=== PATIENT | female | born 2000 | race Caucasian/White ===

== ENCOUNTER 2018-06-10 17:18 | Emergency (ER) | payer OTHER ==
--- NOTE | 2018-06-10 17:44 | ER Document Report ---
ED Psych Disorder / Suicide - General Stated Complaint: PSYCH EVAL Time Seen by Provider: 06/10/18 17:22 Notes: 17-year-old female patient emergency department for evaluation of suicidal ideation and overdose. Patient reportedly took a bottle of NyQuil which had 295 mg of Benadryl and then also took 4200 mg of ibuprofen. Patient states that she is sad because she is not going to be home for [place] and this is the first time she has been away from home. Was recently . Is active duty [employer]. Denies any other ingestion at this time. - HPI Patient complains to provider of: Suicidal ideation, Suicidal plan, Suicidal attempt Onset: This afternoon Onset was: Sudden Severity: Moderate Pain Level: Denies Suicide Risk Factors: Depressed Suicide Attempt Method: Overdose Overdose of: Anticholinergic Past Medical History - General Information source: Patient - Social History Smoking Status: Current Every Day Smoker Frequency of alcohol use: None Drug Abuse: None Lives with: Spouse/Significant other Family History: Reviewed & Not Pertinent Review of Systems - Review of Systems Notes: Constitutional: denies: Chills, Diaphoresis, Fever, Malaise, Weakness EENT: denies: Eye discharge, Blurred vision, Tearing, Double vision, Nose congestion, Nose discharge, Throat swelling, Mouth pain Cardiovascular: denies: Palpitations, Heart racing, Orthopnea, Dyspnea, Chest pain Respiratory: denies: Cough, Hurts to breathe, Wheezing, Shortness of breath Gastrointestinal: denies: Abdominal pain, Diarrhea, Nausea, Vomiting, Black stools, bright red blood in stool Genitourinary: denies: Burning, Dysuria, Discharge, Frequency, Flank pain, Hematuria Musculoskeletal: denies: Joint pain, Joint swelling, Muscle pain, Muscle stiffness, back pain Hematologic/Lymphatic: denies: Anemia, Easy bleeding, Easy bruising, Blood clots Neurological/Psychological: denies: Confusion, Dementia, and complaining of depression and suicidal ideation with suicide attempt. Skin: No lesions, no masses, no skin breakdown, no abscesses Physical Exam - Vital signs Vitals: Resp BP 16 126/79 H 06/10/18 17:37 06/10/18 17:37 Interpretation: Normal - General General appearance: Appears well, Alert - HEENT Head: Normocephalic, Atraumatic Eyes: Normal Pupils: PERRL - Respiratory Respiratory status: No respiratory distress Chest status: Nontender Breath sounds: Normal Chest palpation: Normal - Cardiovascular Rhythm: Regular Heart sounds: Normal auscultation Murmur: No - Abdominal Inspection: Normal Distension: No distension Bowel sounds: Normal Tenderness: Nontender Organomegaly: No organomegaly - Back Back: Normal, Nontender - Extremities General upper extremity: Normal inspection, Nontender, Normal color, Normal ROM, Normal temperature General lower extremity: Normal inspection, Nontender, Normal color, Normal ROM, Normal temperature, Normal weight bearing. No: Nette's sign - Neurological Neuro grossly intact: Yes Cognition: Normal Orientation: AAOx4 Antlers Coma Scale Eye Opening: Spontaneous Nisha Coma Scale Verbal: Oriented Antlers Coma Scale Motor: Obeys Commands Nisha Coma Scale Total: 15 Speech: Normal Motor strength normal: LUE, RUE, LLE, RLE Sensory: Normal - Psychological Associated symptoms: Normal affect, Depressed - Skin Skin Temperature: Warm Skin Moisture: Dry Skin Color: Normal Course - Re-evaluation Re-evalutation: 06/10/18 20:24 Laboratory 06/10/18 06/10/18 06/10/18 17:40 17:40 17:40 WBC 6.4 RBC 5.20 Hgb 15.4 Hct 44.1 MCV 85 MCH 29.5 MCHC 34.9 RDW 12.8 Plt Count 255 Seg Neutrophils % 55.9 Lymphocytes % 31.1 Monocytes % 8.4 Eosinophils % 3.6 Basophils % 1.0 Absolute Neutrophils 3.6 Absolute Lymphocytes 2.0 Absolute Monocytes 0.5 Absolute Eosinophils 0.2 Absolute Basophils 0.1 PT 12.7 INR 0.91 Sodium 142.1 Potassium 3.7 Chloride 109 H Carbon Dioxide 25 Anion Gap 8 BUN 15 Creatinine 0.87 Est GFR ( Amer) > 60 Est GFR (Non-Af Amer) > 60 Glucose 82 Calcium 9.5 Total Bilirubin 0.7 Direct Bilirubin 0.2 Neonat Total Bilirubin Not Reportable Neonat Direct Bilirubin Not Reportable Neonat Indirect Bili Not Reportable AST 33 H ALT 26 Alkaline Phosphatase 72 Total Protein 6.8 Albumin 4.1 Urine Color Urine Appearance Urine pH Ur Specific [place] Urine Protein Urine Glucose (UA) Urine Ketones Urine Blood Urine Nitrite Urine Bilirubin Urine Urobilinogen Ur Leukocyte Esterase Urine WBC (Auto) Urine Bacteria (Auto) Squamous Epi Cells Auto Urine Mucus (Auto) Urine Ascorbic Acid Urine HCG, Qual Salicylates Acetaminophen Serum Alcohol 06/10/18 06/10/18 06/10/18 17:40 17:40 17:40 WBC RBC Hgb Hct MCV MCH MCHC RDW Plt Count Seg Neutrophils % Lymphocytes % Monocytes % Eosinophils % Basophils % Absolute Neutrophils Absolute Lymphocytes Absolute Monocytes Absolute Eosinophils Absolute Basophils PT INR Sodium Potassium Chloride Carbon Dioxide Anion Gap BUN Creatinine Est GFR ( Amer) Est GFR (Non-Af Amer) Glucose Calcium Total Bilirubin Direct Bilirubin Neonat Total Bilirubin Neonat Direct Bilirubin Neonat Indirect Bili AST ALT Alkaline Phosphatase Total Protein Albumin Urine Color YELLOW Urine Appearance CLEAR Urine pH 6.0 Ur Specific [place] 1.020 Urine Protein NEGATIVE Urine Glucose (UA) NEGATIVE Urine Ketones NEGATIVE Urine Blood NEGATIVE Urine Nitrite NEGATIVE Urine Bilirubin NEGATIVE Urine Urobilinogen NEGATIVE Ur Leukocyte Esterase NEGATIVE Urine WBC (Auto) 0 Urine Bacteria (Auto) TRACE Squamous Epi Cells Auto 1 Urine Mucus (Auto) RARE Urine Ascorbic Acid NEGATIVE Urine HCG, Qual POSITIVE H Salicylates < 1.0 L Acetaminophen < 10 L Serum Alcohol < 10 She has a positive test. Initial labs negative. Consulted with psychiatry at [facility] Lucas Narvaez who would like to have patient admitted to the medical service due to her new diagnosis of and overdose and then they will see her as an inpatient. Will attempt to transfer/consult with medicine Dr. Lucas Narvaez shortly. 06/10/18 20:[address] Duenas with internal medicine at [facility]. He has accepted the patient. We will transfer her shortly. 06/10/18 22:02 Did speak with patient's commanding officer, Lieutenant Colonel Miller. He would like to be contacted if there are any concerns. His cell phone number is [phone]. Patient did give me permission to speak with her chain of command . 06/10/18 22:21 Repeat Tylenol performed and there is no elevation at 4-hour gracie. Patient remained stable for transport at this time. Patient was reevaluated shortly prior to transfer and remained stable. Transport crew is here at this time for transfer. - Vital Signs Vital signs: Temp Pulse Resp BP Pulse Ox 98 F 16 107/53 L 98 06/10/18 18:48 06/10/18 22:10 06/10/18 22:00 06/10/18 22:10 - Laboratory Result Diagrams: 06/10/18 17:40 12/21/18 17:40 Laboratory results interpreted by me: 06/10/18 06/10/18 06/10/18 17:40 17:40 17:40 Chloride 109 H AST 33 H Beta HCG, Quant Urine HCG, Qual POSITIVE H Salicylates < 1.0 L Acetaminophen < 10 L 06/10/18 06/10/18 06/10/18 17:40 17:40 21:45 Chloride AST Beta HCG, Quant 709.29 H Urine HCG, Qual Salicylates Acetaminophen < 10 L < 10 L - EKG Interpretation by Me EKG shows normal: Sinus rhythm, Sprak[place], Intervals, QRS Complexes, ST-T Waves Discharge - Discharge Clinical Impression: Suicidal ideation Overdose Qualifiers: Encounter type: initial encounter Injury intent: intentional self-harm Qualified Code(s): T50.902A - Poisoning by unspecified drugs, medicaments and b iological substances, intentional self-harm, initial encounter Ibuprofen overdose Qualifiers: Encounter type: initial encounter Injury intent: intentional self-harm Qualified Code(s): T39.312A - Poisoning by propionic acid derivatives, intentional self-harm, initial encounter Qualifiers: Weeks of gestation: less than 8 weeks Qualified Code(s): Z3A.01 - Less than 8 weeks gestation of Condition: Good Disposition: [facility]
[2018-06-10 17:56] LABS: ABSOLUTE BASOPHILS # (AUTO) 0.1 10^3/uL (0.0-0.2); ABSOLUTE EOSINOPHILS # (AUTO) 0.2 10^3/uL (0.0-0.6); ABSOLUTE MONOCYTES (AUTO) 0.5 10^3/uL (0.1-1.4); ABSOLUTE NEUT (AUTO) 3.6 10^3/uL (1.7-8.2); EOSINOPHILS % (AUTO) 3.6 % (0-6); HEMATOCRIT 44.1 % (36.0-47.0); HEMOGLOBIN 15.4 g/dL (12.0-15.5); LYMPHOCYTES % (AUTO) 31.1 % (13-45); MEAN CORPUSCULAR HEMOGLOBIN 29.5 pg (27.0-33.4); MEAN CORPUSCULAR HGB CONC 34.9 g/dL (32.0-36.0); MEAN CORPUSCULAR VOLUME 85 fl (80-97); MONOCYTES % (AUTO) 8.4 % (3-13); PLATELET COUNT 255 10^3/uL (150-450); RED CELL DISTRIBUTION WIDTH 12.8 % (11.5-14.0); SEGMENTED NEUTROPHILS % (AUTO) 55.9 % (42-78); TOTAL CELLS COUNTED % (AUTO) 100 %; WHITE BLOOD COUNT 6.4 10^3/uL (4.0-10.5)
[2018-06-10 17:59] LABS: APPEARANCE,URINE CLEAR; BILIRUBIN,URINE NEGATIVE (NEGATIVE); COLOR,URINE YELLOW; GLUCOSE, URINE NEGATIVE (NEGATIVE); KETONES,URINE NEGATIVE (NEGATIVE); LEUKOCYTE ESTERASE,URINE NEGATIVE (NEGATIVE); NITRITE,URINE NEGATIVE (NEGATIVE); PROTEIN,URINE NEGATIVE (NEGATIVE); UROBILINOGEN,URINE NEGATIVE mg/dL (<2.0)
[2018-06-10 18:00] LABS: INTERNATIONAL RATION (INR) 0.91; PROTHROMBIN TIME 12.7 SEC (11.4-15.4)
[2018-06-10 18:23] LABS: ALANINE AMINOTRANSFERASE 26 U/L (5-35); ALBUMIN 4.1 g/dL (3.7-5.6); ALKALINE PHOSPHATASE 72 U/L (50-135); ANION GAP 8 (5-19); ASPARTATE AMINO TRANSFERASE 33 U/L (5-30); BILIRUBIN,DIRECT 0.2 mg/dL (0.0-0.4); BILIRUBIN,TOTAL 0.7 mg/dL (0.2-1.3); BLOOD UREA NITROGEN 15 mg/dL (7-20); CALCIUM 9.5 mg/dL (8.4-10.2); CARBON DIOXIDE 25 mmol/L (22-30); CHLORIDE 109 mmol/L (98-107); GLUCOSE 82 mg/dL (75-110); POTASSIUM 3.7 mmol/L (3.6-5.0); SODIUM 142.1 mmol/L (137-145); TOTAL PROTEIN 6.8 g/dL (6.3-8.2)
[2018-06-10 18:25] LABS: ACETAMINOPHEN < 10 ug/mL (10-30); ALCOHOL < 10 mg/dL (NONE DETECTED); SALICYLATE < 1.0 mg/dL (2.0-20.0)
[2018-06-10 20:39] LABS: URINE AMPHETAMINES SCREEN NEGATIVE; URINE BARBITURATES SCREEN NEGATIVE; URINE BENZODIAZEPINES SCREEN NEGATIVE; URINE COCAINE SCREEN NEGATIVE; URINE MARIJUANA (THC) SCREEN NEGATIVE; URINE METHADONE SCREEN NEGATIVE; URINE PHENCYCLIDINE SCREEN NEGATIVE
[2018-06-10 22:15] VITALS: BP 107/53
--- NOTE | 2018-06-11 06:36 | EKG REPORT ---
SEVERITY:- NORMAL ECG - SINUS RHYTHM : Confirmed by: Rehan Boone MD 11-Jun-2018 06:35:27
== END 2018-06-10 22:44 ==
LOC: ER 17:18
DX: O9A.211 Injury, poisoning and certain other consequences of external causes complicating pregnancy, first trimester (principal); T45.0X2A Poisoning by antiallergic and antiemetic drugs, intentional self-harm, initial encounter; T39.312A Poisoning by propionic acid derivatives, intentional self-harm, initial encounter; F17.200 Nicotine dependence, unspecified, uncomplicated; Y92.9 Unspecified place or not applicable; Z3A.01 Less than 8 weeks gestation of pregnancy
CPT/HCPCS: 36415; 80053; 80307; 81001; 81025; 84702; 85025; 85610; 93005; 93010; 99285